=== PATIENT | female | born 2000 | race Caucasian/White ===

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

== ENCOUNTER 2021-10-25 02:05 | Emergency (ER) | payer BC, OTHER ==
[~2021-10-25] VITALS: Ht 160 cm; Wt 59.0 kg
[2021-10-25 02:10] VITALS: BP_SYST 120
--- NOTE | 2021-10-25 02:10 | NUR ---
Patient triaged and placed in waiting room. VSS and patient appears in no acute distress at this time. Accompanied by MOTHER, awaiting available bed, and MD notified of need for MSE.
--- NOTE | 2021-10-25 02:50 | NUR ---
Call pt name in the waiting room.No answer.
--- NOTE | 2021-10-25 02:55 | NUR ---
Call pt name in the waiting room.No answer.
--- NOTE | 2021-10-25 03:00 | NUR ---
Call pt name in the waiting room.No answer.
== END 2021-10-25 03:00 | disposition left against medical advice (07) ==
LOC: SED 02:05
DX: R51.9 Headache, unspecified (principal); Z53.21 Procedure and treatment not carried out due to patient leaving prior to being seen by health care provider

== ENCOUNTER 2023-12-12 04:08 | Emergency (ER) | payer OTHER ==
[~2023-12-12] VITALS: Ht 157.5 cm; Wt 54.4 kg
[2023-12-12 04:08] VITALS: BP_SYST 110; PULSE 88; RESP 18; TEMP 98; O2SAT 99
[2023-12-12] MEDS: KETOROLAC TROMETHAMINE 30 MG VIAL IVP ONE (04:47)
[2023-12-12] MEDS: METOCLOPRAMIDE HCL 10 MG/2 ML VIAL IVP ONE (04:48)
[2023-12-12] MEDS: NACL 0.9% 1,000 ML IV ONE (04:49)
[2023-12-12] MEDS ORDERED: SUMA100T16 PO (05:40)
[2023-12-12 05:50] VITALS: BP_SYST 103; PULSE 74; RESP 16; TEMP 98.4; O2SAT 97
== END 2023-12-12 05:50 | disposition home or self-care (01) ==
LOC: SED 04:08
DX: G43.909 Migraine, unspecified, not intractable, without status migrainosus (principal); R11.2 Nausea with vomiting, unspecified; H53.149 Visual discomfort, unspecified; Z79.899 Other long term (current) drug therapy
CPT/HCPCS: 99284; 96374; 96375; 81025; J1885; J2765